=== PATIENT | male | born 2000 | race Caucasian/White ===

== ENCOUNTER 2019-10-10 22:47 | Emergency (ER) | payer OTHER ==
[2019-10-10] MEDS ORDERED: Tetracaine HCl/PF 0.5% 4 ML Bottle EYERT ONE (23:18)
[2019-10-10] MEDS ORDERED: Ibuprofen 400 MG Tab PO ONE (23:38)
[2019-10-10] MEDS ORDERED: Acetaminophen 500 MG Tab PO ONE (23:38)
[2019-10-10] MEDS ORDERED: Diphtheria,Pertussis(Acell),Tetanus Vaccine 0.5 ML Syringe IM ONE (23:39)
--- NOTE | 2019-10-10 23:43 | EDM.PDOC ---
ED HPI GENERAL MEDICAL PROBLEM - General Chief Complaint: General Stated Complaint: RT EYE WELDING PIECE Time Seen by Provider: 10/10/19 22:57 Source of Information: Reports: Patient History Limitations: Reports: No Limitations - History of Present Illness INITIAL COMMENTS - FREE TEXT/NARRATIVE: 19-year-old male with no past medical history presenting with right eye pain. Patient states he was grinding metal yesterday and was concerned that he may have had a metal piece shoot into his right eye. He presents to the ER complaining of pain and a foreign body sensation to the right eye. Denies any diminished visual acuity. Tetanus immunization status is uncertain. Denies any pain with eye movement or any facial swelling or discharge. No self treatment prior to arrival. No other complaints. Right Eye Pain Score (Numeric/FACES): 7 - Related Data Allergies Allergy/AdvReac Type Severity Reaction Status Date / Time No Known Allergies Allergy Verified 10/10/19 23:11 Home Meds: Home Meds Ketorolac [Acular 0.5% Ophth Soln] 1 drop OP TID PRN #1 bottle 10/11/19 [Rx] Past Medical History - Past Health History Medical/Surgical History: Denies Medical/Surgical History Cardiovascular History: Reports: None Respiratory History: Reports: None Gastrointestinal History: Reports: None Genitourinary History: Reports: None Musculoskeletal History: Reports: None Neurological History: Reports: None Psychiatric History: Reports: None Endocrine/Metabolic History: Reports: None Hematologic History: Reports: None Immunologic History: Reports: None Oncologic (Cancer) History: Reports: None Dermatologic History: Reports: None - Infectious Disease History Infectious Disease History: Reports: None - Past Surgical History Head Surgeries/Procedures: Reports: None HEENT Surgical History: Reports: Oral Surgery Other HEENT Surgeries/Procedures: wisdom teeth Male Surgical History: Reports: None Social & Family History - Family History Family Medical History: Noncontributory - Caffeine Use Caffeine Use: Reports: None - Recreational Drug Use Recreational Drug Use: No ED ROS GENERAL - Review of Systems Review Of Systems: See Below Constitutional: Denies: Fever HEENT: Reports: Eye Pain. Denies: Eye Discharge, Vision Change ED EXAM, GENERAL - Physical Exam Exam: See Below Free Text/Narrative:: Vital signs reviewed. Nursing notes reviewed. Constitutional: Awake, alert, non-distressed. Head: Normocephalic, atraumatic. Eyes: EOMI, conjunctiva normal, no discharge, no scleral icterus. Intraocular pressure 21 OD. Left eye 20/25 right eye 20/25 Both eye 20/20. Noted a foreign body over the right aspect of the iris of the right eye. Slit-lamp examination revealed punctate uptake over the inferior aspect of the right iris, possibly due to superficial keratitis. Ears, Nose, Throat: External ears and nose normal, moist oral mucosa. Cardiovascular: 2+ radial pulse, capillary refill less than 2 seconds. Pulmonary: normal work of breathing, no accessory muscle use. Integumentary: Appropriate color for ethnicity, warm, dry, no pallor or jaundice, no rash. Neurologic: Alert, answering questions appropriately, normal speech, no facial droop, moving all extremities well. Psychiatric: Appropriate mood and affect, normal thought process. Eye Exam: Right Eye: Corneal Abrasion, Foreign Body, PERRL, Bilateral Eye: EOMI Course - Vital Signs Text/Narrative:: Patient hemodynamically stable, afebrile, well-appearing, looks nontoxic. Differential diagnosis includes but is not limited to: globe rupture, corneal abrasion, foreign body, corneal ulcer, episcleritis, HSV, corneal ulcer, retrobulbar abscess or hematoma, perihypopyon, conjunctivitis, shingles, and many others. CT imaging of the orbits reveals no intraocular foreign bodies. Tetanus immunization booster was given. Examination reveals a foreign body over the right side of the right iris. I attempted to remove this multiple times with a cotton swab without relief. It is been present for at least 24 hours so may need to be removed with a specialized tool available to an insole department worker. There is also some superficial punctate appearing fluorescein uptake so we will conservatively treat for a corneal abrasion. I also prescribed ophthalmic ketorolac drops and recommended over the counter extra Tylenol. I instructed the patient he would need to follow-up with an insole department worker in the next few days to have the foreign body removed given that we were unsuccessful. Plan: Patient is stable to discharge home with outpatient ophthalmology clinic follow-up. Strict emergency department return precautions were provided, patient indicated understanding. All questions were answered prior to departure. Discharged in good condition. Last Recorded V/S: Last Vital Signs Temp 36.1 C 10/10/19 23:07 Pulse 87 10/10/19 23:07 Resp 20 10/10/19 23:07 BP 105/69 10/10/19 23:07 Pulse Ox 98 10/10/19 23:07 - Orders/Labs/Meds Orders: Active Orders 24 hr Category Date Time Status Slit Lamp to Bedside [RC] ASDIRECTED Care 10/10/19 23:19 Active Vaccines to be Administered [RC] PER UNIT ROUTINE Care 10/10/19 23:39 Active Visual Acuity [Vision Test] [RC] ASDIRECTED Care 10/10/19 23:07 Active Meds: Medications Discontinued Medications Generic Name Dose Route Start Last Admin Trade Name Cari PRN Reason Stop Dose Admin Acetaminophen 1,000 mg 10/10/19 23:38 10/11/19 00:18 Tylenol Extra Strength PO 10/10/19 23:39 1,000 mg ONETIME ONE Administration Acetaminophen Confirm 10/11/19 00:23 10/11/19 01:41 Tylenol Extra Strength Administered 10/11/19 00:24 Not Given Dose 500 mg .ROUTE .STK-MED ONE Diphtheria/Tetanus/Acell Pertussis 0.5 ml 10/10/19 23:39 10/11/19 00:19 Adacel IM 10/10/19 23:40 0.5 ml .ONCE ONE Administration Ibuprofen 400 mg 10/10/19 23:38 10/11/19 00:18 Motrin PO 10/10/19 23:39 400 mg ONETIME ONE Administration Tetracaine HCl 1 ml 10/10/19 23:18 10/11/19 00:19 Tetracaine 0.5% Steri-Unit Glenna EYERT 10/10/19 23:19 1 drop ASDIRECTED ONE Administration Departure - Departure Time of Disposition: 02:54 Disposition: Home, Self-Care 01 Condition: Good Clinical Impression: Foreign body of right eye Qualifiers: Encounter type: initial encounter Qualified Code(s): T15.91XA - Foreign body on external eye, part unspecified, right eye, initial encounter Corneal abrasion, right Qualifiers: Encounter type: initial encounter Qualified Code(s): S05.01XA - Injury of conjunctiva and corneal abrasion without foreign body, right eye, initial encounter - Discharge Information *PRESCRIPTION DRUG MONITORING PROGRAM REVIEWED*: Not Applicable *COPY OF PRESCRIPTION DRUG MONITORING REPORT IN PATIENT DARIN: Not Applicable Prescriptions: Ketorolac [Acular 0.5% Ophth Soln] 1 drop OP TID PRN #1 bottle PRN Reason: Pain (Moderate 4-6) Instructions: Corneal Abrasion Referrals: Francois Ordoñez MD [Ordering Only Provider] - Forms: ED Department Discharge Additional Instructions: Thank you for choosing the [facility] emergency department in [place] for your medical needs today. It was a pleasure caring for you. You were seen in the emergency department for right eye pain. You have a foreign body in your right eye that we are unable to remove with cotton swabs. I would like for you to follow-up with an insole department worker in the next 3 to 5 days to reattempt removal. You also have what appears to be a corneal abrasion, or scrape of the surface of the right eye. We will prescribe antibiotic ey edrops, take these as directed. You can also take [id number] Tylenol and Motrin for pain. Return to the ER immediately if symptoms worsen. Please return the emergency department immediately if your symptoms worsen or if you feel worse. The following information is given to patients seen in the emergency department who are being discharged. This information is to outline your options for follow-up care. We provide all patients seen in our emergency department with a follow-up referral. The need for follow-up, as well as the timing and circumstances, are variable depending upon the specifics of your emergency department visit. If you don't have a primary care physician on staff, we will provide you with a referral. We always advise you to contact your personal physician following an emergency department visit to inform them of the circumstance of the visit and for follow-up with them and/or the need for any referrals to a consulting specialist. The emergency department will also refer you to a specialist when appropriate. This referral assures that you have the opportunity for follow-up care with a specialist. All of these measure are taken in an effort to provide you with optimal care, which includes your follow-up. Under all circumstances we always encourage you to contact your private physician who remains a resource for coordinating your care. When calling for follow-up care, please make the office aware that this follow-up is from your recent emergency room visit. If for any reason you are refused follow-up, please contact the [facility] Emergency Department at and asked to speak to the emergency department charge nurse. If you do not have a primary care physician that is caring for you, you can contact these clinics below to set up an appointment to establish care: [facility] - Primary Care [address] [place] [address] [facility] [address] [place] [address] Sepsis Event Note (ED) - Evaluation Sepsis Screening Result: No Definite Risk - Focused Exam Vital Signs: Vital Signs Temp Pulse Resp BP Pulse Ox 10/10/19 23:07 36.1 C 87 20 105/69 98 - My Orders Last 24 Hours: My Active Orders 10/10/19 23:07 Visual Acuity [Vision Test] [RC] ASDIRECTED 10/10/19 23:19 Slit Lamp to Bedside [RC] ASDIRECTED 10/10/19 23:39 Vaccines to be Administered [RC] PER UNIT ROUTINE - Assessment/Plan Last 24 Hours: My Active Orders 10/10/19 23:07 Visual Acuity [Vision Test] [RC] ASDIRECTED 10/10/19 23:19 Slit Lamp to Bedside [RC] ASDIRECTED 10/10/19 23:39 Vaccines to be Administered [RC] PER UNIT ROUTINE
--- NOTE | 2019-10-11 00:17 | CT ---
INDICATION: fractures of the lateral limbs of the pterygoids, bilateral anterior, medial, and lateral maxillary sinus davis and bilateral nasal bones. TECHNIQUE: CT orbits without contrast. COMPARISON: None FINDINGS/IMPRESSION: No radiopaque foreign body, fracture, or soft tissue abnormality. The globes and orbital contents are normal in appearance. Please note that all CT scans at this facility use dose modulation, iterative reconstruction, and/or weight-based dosing when appropriate to reduce radiation dose to as low as reasonably achievable. Dictated by Christie Marroquin MD @ Oct 11 2019 12:12AM Signed by Dr. Christie Marroquin @ Oct 11 2019 12:15AM
[2019-10-11] MEDS ORDERED: Acetaminophen 500 MG Tab ONE (00:23)
== END 2019-10-11 03:29 | disposition home or self-care (01) ==
LOC: MW.ED 22:47 → EDBD 22:47 → MW.ED 10-11 03:29
DX: T15.01XA Foreign body in cornea, right eye, initial encounter (principal); Z23 Encounter for immunization
CPT/HCPCS: 70480; 90471; 90715; 99283; A9270